=== PATIENT | male | born 1990 | race Two or more races ===

== ENCOUNTER 2018-01-23 05:13 | Emergency (ER) | payer SELFPAY ==
[~2018-01-23] VITALS: Ht 177.8 cm; Wt 81.6 kg
[2018-01-23] MEDS ORDERED: LORazepam Inj 2mg/ml 1ml IV ONE (05:30)
--- NOTE | 2018-01-23 05:33 | Emergency Room Report ---
History of Present Illness General Chief Complaint: Alcohol Intoxication Source: Patient, EMS Present Illness HPI Is a 28-year-old male presents with chief complaint of not feeling well. He was drinking alcohol tonight at the club and also due to lines of cocaine. At home he said he felt thirsty and nauseous and vomiting. Also felt anxious and hyperventilating. EMS gave him 4 Zofran. He still feeling nauseous. Denies any other complaint. No suicidal thought homicidal thought. Allergies: Coded Allergies: No Known Allergies (Unverified , 01/23/18) Patient History Past Medical History: see triage record, old chart reviewed Past Surgical History: none Pertinent Family History: none Social History: Reports: alcohol use, drug use Immunizations: other Reviewed Nursing Documentation: PMH: Agreed; PSxH: Agreed Nursing Documentation-PMH Past Medical History: No Stated History Review of Systems Constitutional: Reports: weakness Eye: Denies: eye pain, blurred vision ENT: Denies: ear pain, nose congestion, throat swelling Respiratory: Denies: cough, shortness of breath Cardiovascular: Denies: chest pain, palpitations Gastrointestinal: Reports: nausea, vomiting; Denies: abdominal pain, diarrhea Musculoskeletal: Denies: back pain, joint pain Skin: Denies: rash Neurological: Denies: headache, numbness Endocrine: Denies: increased thirst, increased urine Hematologic/Lymphatic: Denies: easy bruising All Other Systems: negative except mentioned in HPI Physical Exam Vital Signs Date Time Temp Pulse Resp B/P (MAP) Pulse Ox O2 Delivery O2 Flow Rate FiO2 01/23/18 05:07 108 18 137/90 98 Room Air vitals with tachycardia Sp02 EP Interpretation: reviewed, normal General Appearance: well appearing, no apparent distress, alert Head: normocephalic, atraumatic Eyes: bilateral eye PERRL, bilateral eye EOMI ENT: hearing grossly normal, normal pharynx Neck: full range of motion, supple, no meningismus Respiratory: chest non-tender, lungs clear, normal breath sounds, other - Hyperventilating Cardiovascular #1: regular rate, rhythm, no murmur Gastrointestinal: normal bowel sounds, non tender, no mass, no organomegaly, no bruit, non-distended Musculoskeletal: back normal, gait/station normal, normal range of motion Psychiatric: anxious Skin: warm/dry Medical Decision Making Diagnostic Impression: Primary Impression: Acute alcoholic intoxication Qualified Codes: F10.929 - Alcohol use, unspecified with intoxication, unspecified Additional Impression: Cocaine abuse ER Course Patient with of intoxication and cocaine abuse. We will hydrate and give him Ativan for anxiety. We'll discharge home once more clinically sober. Last Vital Signs Date Time Temp Pulse Resp B/P (MAP) Pulse Ox O2 Delivery O2 Flow Rate FiO2 01/23/18 05:07 108 18 137/90 98 Room Air Status: improved Disposition: HOME, SELF-CARE Condition: Stable Patient Instructions: Alcohol Intoxication, [id number] Additional Instructions: Stop using drugs and alcohol. Go to rehabilitation. Follow-up with your doctor in 7 days. Return of worse. RJ MATIAS M.D. Jan 23, 2018 05:33
[2018-01-23 05:50] VITALS: BP 122/80
[2018-01-23 07:18] VITALS: BP 104/68
[2018-01-23 07:19] VITALS: BP 104/68
== END 2018-01-23 07:28 | disposition home or self-care (01) ==
LOC: EDBD 05:13 → EMR 05:39
DX: F10.129 Alcohol abuse with intoxication, unspecified (principal); F14.10 Cocaine abuse, uncomplicated
CPT/HCPCS: 96361; 96374; 96375; 99284; J2405